=== PATIENT | female | born 1955 | race Caucasian/White ===

== ENCOUNTER 2018-01-26 09:30 | Day surgery (SDC) | payer MEDICARE, OTHER | END 2018-01-26 12:08 | disposition home or self-care (01) | LOC: GIL 09:30 | DX: K92.1 Melena (principal); K62.1 Rectal polyp; K64.8 Other hemorrhoids; I10 Essential (primary) hypertension; E78.5 Hyperlipidemia, unspecified; E11.9 Type 2 diabetes mellitus without complications; Z79.82 Long term (current) use of aspirin; Z79.84 Long term (current) use of oral hypoglycemic drugs; Z79.4 Long term (current) use of insulin | CPT/HCPCS: 45380; 82962; 88305 ==